=== PATIENT | female | born 1985 | race Caucasian/White ===

== ENCOUNTER 2024-04-14 18:51 | Emergency (ER) | payer BC, SELFPAY ==
--- NOTE | ~2024-04-14 | US_ITS ---
CLINICAL HISTORY: calf pain Venous duplex ultrasound right lower extremity Comparison: None Findings: Peroneal veins are not seen. The visualized deep veins are fully compressible with normal Doppler color flow and spectral tracings. No popliteal cyst. IMPRESSION: 1. Negative for right lower extremity deep vein thrombosis in the visualized veins. This document has been electronically signed by: Lashonda Jade MD on 04/14/2024 21:23:59
--- NOTE | ~2024-04-14 | XR_ITS ---
CLINICAL HISTORY: pain 2 view right knee Comparison: None Findings: Bones intact. No dislocations. No significant loss of joint space, osteophytes, or erosions. No joint effusion. No radiopaque foreign body. IMPRESSION: 1. No acute findings. This document has been electronically signed by: Lashonda Jade MD on 04/14/2024 23:13:13
[2024-04-14 20:16] VITALS: BP 169/103; PULSE 79; RESP 20; TEMP 36.8; O2SAT 97; BMI 44.1
--- NOTE | 2024-04-14 20:18 | ED_ITS ---
HPI - Extremity Injury (Lower) General Chief Complaint: Extremity Injury, Lower Stated Complaint: Rt knee pain Time Seen by Provider: 04/15/24 00:17 Source: patient Limitations: no limitations History of Present Illness ED Provider: Sylvia Redmond PA-C HPI Narrative: 38-year-old female with a history of morbid obesity presents with ongoing right knee pain. Patient states she injured the right knee on March 30 while doing laundry. Since, patient has been assessed by an orthopedist, she has had a steroid joint injection and an MRI as an outpatient; she has cartilaginous defects. 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 Patient has been instructed to wear a knee brace, but she does not wear it all the time, she has also been instructed to use crutches, she has only been using 1 crutch at a time. Related Data Previous Rx's ?Medication ?Instructions ?Recorded meloxicam 15 mg tablet 15 mg PO DAILY #7 tabs 04/15/24 Allergies Allergy/AdvReac Type Severity Reaction Status Date / Time No Known Allergies Allergy Verified 04/14/24 20:21 Review of Systems Review of Systems: Yes all other systems are reviewed and are negative Constitutional: Constitutional: Denies fatigue and Denies fever(s) Musculoskeletal: Musculoskeletal: Reports arthralgias, Denies numbness and Denies tingling Neurologic: Denies numbness and Denies tingling Endocrine: Endocrine: Denies fatigue PMFSH Past Medical History Attestation statement: The following information was validated with the patient. Social History Social History Unable to assess alcohol history related to: Unknown Smoked in Last 30 Days: No Use of substances other than those prescribed or required for medical reasons: No Advance Directives: No Advance Directives Information Provided: Yes Do you have a plan to hurt others: No Plan Patient : No Physical Exam Vital Signs: Vital Signs: Last Vital Signs Temp 98.3 F 04/15/24 02:12 Pulse 72 04/15/24 02:12 Resp 16 04/15/24 02:12 BP 148/92 H 04/15/24 02:12 Pulse Ox 98 04/15/24 02:12 O2 Del Method Room Air 04/15/24 02:12 BMI result Body Mass Index 44.1 Const: Other: Alert appears older than stated age Orientation/consciousness: patient oriented x3 Resp: Effort & Inspection: normal respiratory effort Cardio: Other: Normal peripheral perfusion Skin: Other: Warm dry no rash Neuro: General: patient oriented x3, no focal motor deficits and CN's II-XI intact bilaterally Extrem: Other: No swelling or deformity noted over the right knee, patient able to flex and extend, no erythema or warmth Psych: Other: Cooperative Course Course Course Narrative: This is an RME: Additional HPI, ROS, PE not included below will be deferred to primary provider. RME assessment and note performed by: Lacy Gamboa PA-C This is a [id number], with a hx of hypothyroidism, PCOS, HTN, who presenting to the ER with complaints of right calf pain. Reports that she initially injured her right knee on 03/30 your trip and fall. She was seen at an urgent care as well as [facility]. They drained fluid off of her right knee 1 week ago. She states that she is now having worsening swelling in her right knee, as well as calf pain. Plan: Ultrasound, x-ray Medical Decision Making Medical Decision Making [facility] Narrative: 38-year-old female with a history of morbid obesity presents with ongoing right knee pain. Patient states she injured the right knee on March 30 while doing laundry. Since, patient has been assessed by an orthopedist, she has had a steroid joint injection and an MRI as an outpatient; she has cartilaginous defects. 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 Patient has been instructed to wear a knee brace, but she does not wear it all the time, she has also been instructed to use crutches, she has only been using 1 crutch at a time. Problem: Recent injury History: Per patient I have considered the following differential diagnoses: Fracture, dislocation, sprain, septic effusion, known underlying cartilaginous injuries Plan: An x-ray an ultrasound were ordered from triage, everything is negative. I have explained to the patient that she has known cartilaginous defects, and now it seems that she has re-injured the knee, likely a mild sprain. I have instructed her to wear the knee brace as directed to use both crutches, to only bear weight as tolerated. She has pending Orthopedic follow up. X-ray right knee: Findings: Bones intact. No dislocations. No significant loss of joint space, osteophytes, or erosions. No joint effusion. No radiopaque foreign body. IMPRESSION: 1. No acute findings. This document has been electronically signed by: Lashonda Jade MD on 04/14/2024 23:13:13 Ultrasound right lower extremity:Findings: Peroneal veins are not seen. The visualized deep veins are fully compressible with normal Doppler color flow and spectral tracings. No popliteal cyst. IMPRESSION: 1. Negative for right lower extremity deep vein thrombosis in the visualized veins. This document has been electronically signed by: Lashonda Jade MD on 04/14/2024 21:23:59 Discharge Plan Discharge Clinical Impression: Right knee sprain Patient Disposition: Home, Self-Care Instructions: Knee Sprain (ED), Crutch Instructions (ED), R.I.C.E. Treatment (ED) Additional Instructions: Given your knee gave out today, you likely sprained it to some degree. See home care instructions. I am including the imaging reports that were performed today you have no acute injury. Continue to follow up with the orthopedist. You should be using your crutches, bearing weight as tolerated only, keep your compression sleeve in place. Use the meloxicam for your discomfort this is an anti-inflammatory, take it with food. X-ray right knee: Findings: Bones intact. No dislocations. No significant loss of joint space, osteophytes, or erosions. No joint effusion. No radiopaque foreign body. IMPRESSION: 1. No acute findings. This document has been electronically signed by: Lashonda Jade MD on 04/14/2024 23:13:13 Ultrasound right lower extremity:Findings: Peroneal veins are not seen. The visualized deep veins are fully compressible with normal Doppler color flow and spectral tracings. No popliteal cyst. IMPRESSION: 1. Negative for right lower extremity deep vein thrombosis in the visualized veins. This document has been electronically signed by: Lashonda Jade MD on 04/14/2024 21:23:59 Prescriptions: New meloxicam 15 mg tablet 15 mg PO DAILY Qty: 7 0RF Stand Alone Forms: Work/School Release Interventions: ED Discharge Assessment Last Done: 04/15/24 02:12 Discharge Date/Time: 04/15/24 02:12 Print Language: [place]ese
[2024-04-15 00:35] VITALS: BP 153/98; PULSE 76; RESP 6; O2SAT 97
[2024-04-15 02:12] VITALS: BP 148/92; PULSE 72; RESP 16; TEMP 36.8; O2SAT 98
== END 2024-04-15 02:12 | disposition home or self-care (01) ==
PROVIDERS: Emergency Provider Emergency Medicine Emergency Medical Services; PCP Internal Medicine
DX: S83.91XA Sprain of unspecified site of right knee, initial encounter (principal); X50.9XXA Other and unspecified overexertion or strenuous movements or postures, initial encounter; M79.604 Pain in right leg; E66.9 Obesity, unspecified; Z68.41 Body mass index [BMI] 40.0-44.9, adult; Y93.89 Activity, other specified; Y92.219 Unspecified school as the place of occurrence of the external cause; Y99.9 Unspecified external cause status
CPT/HCPCS: 73560; 93971; 99284

== ENCOUNTER → 2024-04-14 20:24 | Outpatient (BNV) | payer OTHER, SELFPAY | PROVIDERS: PCP Internal Medicine; Visit Provider Radiology Diagnostic Radiology | DX: M79.661 Pain in right lower leg (principal) | CPT/HCPCS: 93971 ==